=== PATIENT | male | born 1995 | race Caucasian/White ===

== ENCOUNTER 2023-10-26 18:02 | Emergency (ER) | payer SELFPAY ==
[~2023-10-26] VITALS: Ht 182.9 cm; Wt 81.6 kg
[2023-10-26 18:05] VITALS: BP 136/88; PULSE 100; RESP 16; TEMP 97.5; O2SAT 97
[2023-10-26] MEDS ORDERED: IBUPROFEN 600 MG TAB PO ONE (18:30)
== END 2023-10-26 18:49 | disposition left against medical advice (07) ==
LOC: MED 18:02
DX: S61.212D Laceration without foreign body of right middle finger without damage to nail, subsequent encounter (principal); Y93.G3 Activity, cooking and baking
CPT/HCPCS: 99283